=== PATIENT | female | born 1940 | race Caucasian/White ===

== ENCOUNTER → 2020-07-28 | Day surgery (SDC) | payer MEDICARE ==
[~2020-07-28] MED LIST: BENADRYL 50MG C50 MG PO; CALCIUM PO; CALCIUM500 MG PO; GERITOL COMPLE1 EACH PO; HYDRALAZINE HCL50 MG PO; METOPROLOL SUCC25 MG PO; PEPCID20 MG PO; PREDNISONE50 MG PO; VALSARTAN-HCTZ1 EAC2 PO; VITAMIN C PO; VITAMIN D PO
== END | disposition home or self-care (01) ==
LOC: OR 06:12
PROVIDERS: Surgery
PROC: 0DJD8ZZ Inspection of Lower Intestinal Tract, Via Natural or Artificial Opening Endoscopic (ICD-10-PCS; principal; 2020-07-28 07:30)
DX: Z12.11 Encounter for screening for malignant neoplasm of colon (principal); K57.30 Diverticulosis of large intestine without perforation or abscess without bleeding; K21.9 Gastro-esophageal reflux disease without esophagitis; I10 Essential (primary) hypertension; E03.9 Hypothyroidism, unspecified; G62.9 Polyneuropathy, unspecified; E78.5 Hyperlipidemia, unspecified; E11.49 Type 2 diabetes mellitus with other diabetic neurological complication; Z79.899 Other long term (current) drug therapy; Z88.0 Allergy status to penicillin; Z88.5 Allergy status to narcotic agent; Z88.8 Allergy status to other drugs, medicaments and biological substances; M81.0 Age-related osteoporosis without current pathological fracture
CPT/HCPCS: J2001; J2704; J7030

== ENCOUNTER 2021-02-17 12:24 | Emergency (ER) | payer MEDICARE ==
[~2021-02-17] VITALS: Ht 147.3 cm; Wt 59.9 kg
== END 2021-02-17 15:33 | disposition home or self-care (01) ==
LOC: ER1 12:24
DX: U07.1 COVID-19 (principal); Z23 Encounter for immunization
CPT/HCPCS: 71045; 99284; M0243